=== PATIENT | female | born 1960 | race Caucasian/White ===

== ENCOUNTER → 2017-11-08 | Outpatient (CLI) | payer OTHER | LOC: M.RAD 06:59 | DX: M47.816 Spondylosis without myelopathy or radiculopathy, lumbar region (principal); M17.0 Bilateral primary osteoarthritis of knee; M25.512 Pain in left shoulder; M48.061 Spinal stenosis, lumbar region without neurogenic claudication; M25.78 Osteophyte, vertebrae; M54.42 Lumbago with sciatica, left side; I10 Essential (primary) hypertension; J44.9 Chronic obstructive pulmonary disease, unspecified; G89.29 Other chronic pain; M19.90 Unspecified osteoarthritis, unspecified site ==

== ENCOUNTER → 2017-11-16 | Outpatient (CLI) | payer OTHER ==
[2017-11-16 08:46] LABS: CREATININE 0.6 mg/dL (0.6-1.3)
--- NOTE | 2017-11-18 12:06 | PF ---
[address] [address] PULMONARY FUNCTION REPORT Name: RAJWINDER COOLEY Room: [facility]#: [id number] Admission: 11/16/17 Attend Phys: Pasha Banks MD Discharge: Date of : 56 Report #: [id number] THIS REPORT FOR: //name// CC: Pasha Banks INTERPRETATION: The expiratory flow rates are diminished, the FEV1 of 1.10, which is 56% of the predicted value. The FEV1/FVC ratio was 38 as the forced vital capacity is 2.86, which is 113% of predicted. After inhaled bronchodilator, there is no significant clinical response in the expiratory flow rates. Lung volumes measured by body plethysmography are slightly increased. The diffusion capacity is severely reduced. IMPRESSION: 1. Moderately severe airflow obstruction based on the reduced expiratory flow rates. 2. Hyperinflation with minimal air trapping. 3. Severe reduction in the diffusion capacity. <ELECTRONICALLY SIGNED> By: Fortino Castro MD 11/18/17 1206 [id number] [id number] Catsro MD /nt
== END ==
LOC: M.MRI 11-04 16:26 → M.LAB 08:11 → M.CT 08:11 → M.MRI 08:30 → M.CT 09:30
PROVIDERS: Internal Medicine
DX: J98.11 Atelectasis (principal); K76.0 Fatty (change of) liver, not elsewhere classified; J44.9 Chronic obstructive pulmonary disease, unspecified; I10 Essential (primary) hypertension; G89.29 Other chronic pain; M54.42 Lumbago with sciatica, left side; M54.41 Lumbago with sciatica, right side; M25.511 Pain in right shoulder; M25.512 Pain in left shoulder

== ENCOUNTER → 2018-01-16 | Outpatient (CLI) | payer OTHER | LOC: M.MRI 11-28 07:30 | DX: M54.9 Dorsalgia, unspecified (principal); M99.73 Connective tissue and disc stenosis of intervertebral foramina of lumbar region; M48.061 Spinal stenosis, lumbar region without neurogenic claudication; M41.86 Other forms of scoliosis, lumbar region; J44.9 Chronic obstructive pulmonary disease, unspecified; I10 Essential (primary) hypertension; M19.90 Unspecified osteoarthritis, unspecified site; G89.29 Other chronic pain ==

== ENCOUNTER → 2019-11-19 | Outpatient (CLI) | payer OTHER | LOC: M.ULTRA 08:00 | PROVIDERS: ATTEND Internal Medicine | DX: R94.5 Abnormal results of liver function studies (principal) ==

== ENCOUNTER 2020-01-08 14:06 | Emergency (ER) | payer OTHER ==
[~2020-01-08] VITALS: Ht 170.2 cm; Wt 109.8 kg
[2020-01-08 15:34] LABS: ABSOLUTE BASOPHILS 0.1 thou/uL (0.0-0.2); ABSOLUTE MONOCYTES 0.8 thou/uL (0.0-1.2); BASOPHILS 1.1 %; EOSINOPHILS 0.4 %; HEMATOCRIT 47.3 % (37.0-47.0); HEMOGLOBIN 16.2 gm/dL (12.0-15.0); LYMPHOCYTES 27.6 %; MCH 32.8 pg (26.0-34.0); MCHC 34.3 g/dL (28.0-37.0); MCV 95.4 fL (80.0-100.0); MONOCYTES 7.3 %; MPV 8.6 fl. (7.2-11.1); NUCLEATED RBCS 0 /100WBC; PLATELET COUNT* 153 thou/uL (150-400); POLYS 63.6 %; RBC 4.96 mil/uL (4.20-5.00); WBC 11.1 thou/uL (4.0-11.0)
[2020-01-08 15:41] LABS: CALCIUM 9.6 mg/dL (8.5-10.1); CREATININE 0.8 mg/dL (0.6-1.3)
[2020-01-08] MEDS ORDERED: LASIX 40 MG TAB40 MG PO (15:46)
[2020-01-08] MEDS ORDERED: SYNTHROID50 MCG PO (15:46)
[2020-01-08] MEDS ORDERED: CARDIZEM SR 60M60 MG PO (15:46)
[2020-01-08] MEDS ORDERED: CYMBALTA60 MG PO (15:46)
[2020-01-08] MEDS ORDERED: LOSARTAN-HCTZ1 EAC3 PO (15:46)
[2020-01-08] MEDS ORDERED: NEURONTIN300 MG PO (15:46)
[2020-01-08] MEDS ORDERED: SYMBICORT160 MCG/4. INH (15:47)
[2020-01-08] MEDS ORDERED: PROAIR HFA8.5 GM INH (15:47)
[2020-01-08] MEDS ORDERED: IPRATROPIU0.2 MG/1 M INH (15:47)
[2020-01-08] MEDS ORDERED: SPIRIVA INH (15:47)
[2020-01-08 15:52] LABS: ALBUMIN 3.4 g/dL (3.4-5.0); TOTAL BILIRUBIN 0.4 mg/dL (<0.1-1.0); TOTAL PROTEIN 7.5 g/dL (6.4-8.2)
[2020-01-08] MEDS ORDERED: NORCO 5-325 TA1 EAC2 PO (18:17)
[2020-01-08] MEDS ORDERED: MEDROLDOSEPACK PO (18:17)
[2020-01-08] MEDS ORDERED: ZPAK PO (18:17)
[2020-01-08] MEDS ORDERED: IBUPROFEN 800800 M1 PO (18:17)
[2020-01-08 18:44] VITALS: BP 139/72
--- NOTE | 2020-01-09 15:17 | EKG ---
[place] [address] ELECTROCARDIOGRAM REPORT Name: LENORADOMINIKJASPAL Fairchild Room: [facility]#: [id number] Admission: 01/08/20 Attend Phys: Discharge: 01/08/20 Date of : 56 Date of Service: 01/08/20 1530 Report #: [id number] THIS REPORT FOR: //name// [facility] ED Test Date: 2020-01-08 Test Time: 15:30:06 Pat Name: RAJWINDER COOLEY Department: Room: Gender: F Grades 1 6 Tutor: CCD : 1960 Requested By: Marleny Flores Order Number: [id number] MD: Jeff Joseph Measurements Intervals [place] Rate: 62 P: 53 DC: 133 QRS: 21 QRSD: 97 T: 58 QT: 389 QTc: 395 Interpretive Statements Sinus rhythm No previous ECG available for comparison Electronically Signed On 01-09-2020 15:17:10 CDT by Jeff Joseph [email or web address] <ELECTRONICALLY SIGNED> By: Jeff Joseph MD, [facility] 01/09/20 1517 29 29 Jeff Joseph MD, FAC /EPI
== END 2020-01-08 18:45 | disposition home or self-care (01) ==
LOC: M.ERS 14:06
PROVIDERS: Nurse Practitioner Family
DX: J44.1 Chronic obstructive pulmonary disease with (acute) exacerbation (principal); Z20.828 Contact with and (suspected) exposure to other viral communicable diseases; R09.1 Pleurisy; I10 Essential (primary) hypertension; Z79.899 Other long term (current) drug therapy

== ENCOUNTER → 2020-10-23 | Outpatient (CLI) | payer OTHER ==
[~2020-10-23] MED LIST: CARDIZEM SR 60M60 MG PO; CYMBALTA60 MG PO; IBUPROFEN 800800 M1 PO; IPRATROPIU0.2 MG/1 M INH; LASIX 40 MG TAB40 MG PO; LOSARTAN-HCTZ1 EAC3 PO; MEDROLDOSEPACK PO; NEURONTIN300 MG PO; NORCO 5-325 TA1 EAC2 PO; PROAIR HFA8.5 GM INH; SPIRIVA INH; SYMBICORT160 MCG/4. INH; SYNTHROID50 MCG PO; ZPAK PO
== END ==
LOC: M.ULTRA 15:18
PROVIDERS: ATTEND Internal Medicine
DX: R60.0 Localized edema (principal)

== ENCOUNTER → 2021-01-23 | Outpatient (CLI) | payer OTHER | LOC: M.RAD 15:02 | PROVIDERS: ATTEND Registered Nurse Diabetes Educator | DX: R05 Cough (principal) ==